=== PATIENT | female | born 1955 | race Two or more races ===

== ENCOUNTER 2024-02-09 10:33 | Outpatient (REF) | payer MEDICAID, SELFPAY | END 2024-02-09 10:34 | disposition home or self-care (01) | LOC: HO.SH 10:33 | PROVIDERS: Visit Provider Student in an Organized Health Care Education/Training Program | DX: Z01.118 Encounter for examination of ears and hearing with other abnormal findings (principal); H90.3 Sensorineural hearing loss, bilateral | CPT/HCPCS: 92553; 92555; 92567 ==